=== PATIENT | male | born 1970 | race Caucasian/White ===

== ENCOUNTER → 2021-03-14 | Outpatient (CLI) | payer OTHER ==
--- NOTE | 2021-03-14 23:37 | REPVR ---
PROCEDURE INFORMATION: Exam: MR Lumbar Spine Without Contrast Exam date and time: 03/14/2021 6:37 PM Age: 51 years old Clinical indication: Low back pain; Patient HX: Lbp; Additional info: Disc like symptoms TECHNIQUE: Imaging protocol: Multiplanar magnetic resonance images of the lumbar spine without intravenous contrast. COMPARISON: No relevant prior studies available. FINDINGS: Vertebrae: Scoliosis of the thoracolumbar spine with convexity to the right. Spinal cord: Normal signal. No cord compression. L1-L2: Disc bulge. Bilateral facet hypertrophy. No spinal canal stenosis. Moderate bilateral neural foraminal narrowing. L2-L3: Mild disc bulge. Bilateral facet hypertrophy. No spinal canal stenosis. No neural foraminal narrowing. L3-L4: Disc bulge. Bilateral facet and ligamentum flavum hypertrophy. No spinal canal stenosis. Mild bilateral neural foraminal narrowing. L4-L5: Disc bulge. Bilateral facet hypertrophy. No spinal canal stenosis. Moderate bilateral neural foraminal narrowing. L5-S1: Disc bulge. No spinal canal stenosis. Severe right and mild left neural foraminal narrowing. Soft tissues: Unremarkable. IMPRESSION: No acute abnormality. Multilevel degenerative disc disease with neural foraminal narrowing. Moderate bilateral neural foraminal narrowing at L1-L2, mild bilateral L3-L4, moderate bilateral L4-L5, severe right and mild left at L5-S1. Electronically signed by: Edward Lowe On 03/14/2021 23:37:11 PM
--- NOTE | 2021-03-14 23:43 | REPVR ---
PROCEDURE INFORMATION: Exam: MR Cervical Spine Without Contrast Exam date and time: 03/14/2021 6:37 PM Age: 51 years old Clinical indication: Neck pain; Additional info: Disc like symptoms TECHNIQUE: Imaging protocol: Multiplanar magnetic resonance images of the cervical spine without contrast. COMPARISON: No relevant prior studies available. FINDINGS: Vertebrae: There is increased disc signal in the vertebral bodies of C3, C4 and C6 and the endplates of C5 and C7 vertebrae. No abnormal vertebral disc signal. Grade 1 retrolisthesis of C3 over C4. Spinal cord: Normal signal. No cord compression. C2-C3: No significant disc disease. No significant spinal stenosis. C3-C4: Uncovertebral hypertrophy. Severe bilateral neural foraminal narrowing. No spinal canal stenosis. C4-C5: No significant disc disease. No significant spinal stenosis. C5-C6: Uncovertebral hypertrophy. No spinal canal stenosis. Moderate to severe left neural foraminal narrowing. C6-C7: Uncovertebral hypertrophy. No spinal canal stenosis. Moderate bilateral neural foraminal narrowing. C7-T1: No significant disc disease. No significant spinal stenosis. Soft tissues: Unremarkable. Vertebral arteries: Expected flow voids in the vertebral arteries. IMPRESSION: Increased T2/FLAIR signal in the vertebral bodies of C3, C4, C6 and endplates of C5 and C7, likely related to degenerative disc disease. No abnormal signal in the vertebral disc space. Multilevel degenerative disc disease and uncovertebral hypertrophy with neural foraminal narrowing. Severe bilateral neural foraminal narrowing at C3-C4, moderate to severe left C5-C6, moderate bilateral at C6-C7. Electronically signed by: Edward Lowe On 03/14/2021 23:43:21 PM
== END ==
LOC: M RAD 17:10
PROVIDERS: ATTEND Chiropractor
DX: M54.41 Lumbago with sciatica, right side (principal); M99.03 Segmental and somatic dysfunction of lumbar region; M54.13 Radiculopathy, cervicothoracic region; M99.01 Segmental and somatic dysfunction of cervical region

== ENCOUNTER → 2022-05-09 | Outpatient (CLI) | payer OTHER | LOC: M SOG 10:14 | PROVIDERS: ATTEND Orthopaedic Surgery | DX: M25.832 Other specified joint disorders, left wrist (principal); M25.532 Pain in left wrist ==

== ENCOUNTER → 2022-06-08 | Outpatient (CLI) | payer OTHER | LOC: M PLARAD 15:28 | PROVIDERS: ATTEND Orthopaedic Surgery | DX: M25.432 Effusion, left wrist (principal); M25.332 Other instability, left wrist ==

== ENCOUNTER 2024-09-11 07:11 | Day surgery (SDC) | payer OTHER ==
[~2024-09-11] VITALS: Ht 175.3 cm; Wt 70.6 kg
[~2024-09-11 07:11] MED LIST: FAMO40TA3 PO; IBUP200C25 PO; NS 250 ML IV ONE
[2024-09-11 09:01] VITALS: BP 110/77; TEMP 97.6; O2SAT 97
== END 2024-09-11 09:03 | disposition home or self-care (01) ==
LOC: M OPP 07:11
PROVIDERS: ATTEND Surgery
DX: R19.4 Change in bowel habit (principal); K64.2 Third degree hemorrhoids; K62.5 Hemorrhage of anus and rectum; K30 Functional dyspepsia; K44.9 Diaphragmatic hernia without obstruction or gangrene; F10.10 Alcohol abuse, uncomplicated; F17.210 Nicotine dependence, cigarettes, uncomplicated